=== PATIENT | female | born 1965 | race Caucasian/White ===

== ENCOUNTER → 2019-08-02 | Outpatient (CLI) | payer OTHER ==
[2019-08-02 13:51] VITALS: BP 149/80; PULSE 62; RESP 18; TEMP 98.6; BMI 20.5
--- NOTE | 2019-08-02 14:22 | P.GSHP ---
History of Present Illness H&P Date: 08/02/19 Chief Complaint: mammographic abnormality right breast Nidia is a 53 year old white female who presents for breast evaluation. She had routine bilateral stent cranial mammography in November 2018 for which additional views of the right breast were recommended. These were performed in December 2018 and these were felt to be benign BIRADS 3 and 6 month follow-up was recommended. She had her 6 month follow-up performed on 06/28/2019. This revealed increasing diffuse indeterminate calcifications in the upper outer quadrant of the right breast. Biopsy was recommended. She does not have any pain in her breast. The patient is not complaining the pain masses lumps or nodules in her breasts. She has no nipple discharge or skin changes for which she is concerned. She has not had any recent trauma or infections in the past. She has never had any breast biopsies. She drinks about three drinks of coffee/day. She also drinks pepsi. She smokes 1/2 PPD. She is not exposed to second hand smoke. She eats chocolate every day. Family History: paternal grandmother: ? where started maternal great aunt: ? type Hormonal History: menarche: 12 age at first 26, breast fed: no menopause: novasure ablation 20 years ago BCP: 2 years hormones: none Past Surgical History: 1. ovarian cyst 2. tubal Medical History: fibromyalgia Rynauds syndrome carpal tunnel DJD Social History: smoke: 1/2 PPD since 17 alcohol: social/ monthly, used to drink heavily drugs: medical marijuana - Constitutional Constitutional: Reports sweats, Denies chills, Denies fever - EENT Eyes: bilateral blurred vision, bilateral pain Ears: bilateral: decreased hearing, deny: tinnitus Ears, nose, mouth and throat: Reports headache, Denies sore throat - Breasts Breasts: bilateral: as per HPI - Cardiovascular Cardiovascular: Reports high blood pressure - Respiratory Comment: smoker Respiratory: Reports cough - Gastrointestinal Comment: CT scan next week for abd pain Gastrointestinal: Reports abdominal pain - Genitourinary (Female) Genitourinary: Denies dysuria, Denies hematuria - Menstruation Menstruation: Reports postmenopausal - Musculoskeletal Comment: arthritis left hip - Integumentary Integumentary: Denies pruritus, Denies rash - Neurological Neurological: Reports numbness, Reports weakness - Psychiatric Psychiatric: Denies anxiety, Denies depression - Endocrine Endocrine: Reports fatigue, Denies weight change - Hematologic/Lymphatic Comment: none - Allergic/Immunologic Allergic/Immunologic: Reports as per HPI Past Medical History Past Medical History: Fibromyalgia Additional Past Medical History / Comment(s): carpal tunnel, back pain, heart murmur History of Any Multi-Drug Resistant Organisms: None Reported Past Surgical History: Ablation, Tubal Ligation Additional Past Surgical History / Comment(s): ovarian cyst, drained Past Anesthesia/Blood Transfusion Reactions: No Reported Reaction Past Psychological History: Anxiety, Depression Smoking Status: Current every day smoker Past Alcohol Use History: Occasional Past Drug Use History: Marijuana Additional Drug Use History / Comment(s): medical Medications and Allergies Allergies Allergy/AdvReac Type Severity Reaction Status Date / Time No Known Allergies Allergy Verified 08/02/19 13:52 Surgical - Exam Vital Signs Temp Pulse Resp BP Pulse Ox 98.6 F 62 18 149/80 99 08/02/19 13:42 08/02/19 13:42 08/02/19 13:42 08/02/19 13:42 08/02/19 13:42 BMI 20.5 - General well developed, well nourished, no distress - Eyes normal ocular movement - ENT no hearing loss, no congestion - Neck no masses, trachea midline - Respiratory normal respiratory effort, clear to percussion, clear to auscultation - Cardiovascular Rhythm: regular Heart Sounds: normal: S1, S2 - Abdomen Abdomen: soft, non tender, no guarding, no rigid, no rebound - Integumentary normal turgor - Neurologic no disoriented, no combative - Musculoskeletal normal gait, normal posture - Psychiatric oriented to time, oriented to person, oriented to place, speech is normal, memory intact breast exam: Breasts size 30 2A/B Right breast: Multi-positional exam fibrocystic changes breast is very small and tissue was dense, no dominant masses or nodules of concern Right axilla: No adenopathy of concern Left breast: Multi-positional exam fibrocystic changes no dominant masses or nodules of concern Left axilla: No adenopathy of concern Results mammogram results reviewed Assessment and Plan Assessment: Impression: 1. Mammographic abnormality right breast 2. Fibrocystic breast changes 3. Family history of cancer 4. Nicotine dependence 5. Arthritis 6. HTN 7. Abdominal pain Plan: 1. Right breast needle localization and excisional biopsy most likely 2. I discussed the effects of nicotine/theophylline/caffeine/fibrocystic breast changes and the patient is aware that continuing to use these may exacerbate fibrocystic disease 3. Medical management of medical conditions We've discussed the possibility of stereotactic biopsy versus needle local excisional biopsy. The reason we would see with needle local excisional biopsy secondary to the fact that the patient's breast size is 30 2A/B and we may not be able to do a stereotactic biopsy. The patient understands risks and benefits and wishes to proceed. Her films will be reviewed with radiology when they're available. CC: DR. Perry Time with Patient: Greater than 30
== END ==
LOC: WWCWWP 13:17
PROVIDERS: ATTEND Surgery
DX: Z53.9 Procedure and treatment not carried out, unspecified reason (principal)

== ENCOUNTER 2019-10-02 07:15 | Day surgery (SDC) | payer OTHER ==
[2019-09-28 11:28] VITALS: BMI 20.8
--- NOTE | 2019-09-28 17:39 | P.PN ---
Subjective Progress Note Date: 09/28/19 Principal diagnosis: Abnormal mammogram right breast Nidia is a 53 year old white female who presents for breast evaluation. She had routine bilateral mammogram in November 2018 for which additional views of the right breast were recommended. These were performed in December 2018 and these were felt to be benign BIRADS 3 and 6 month follow-up was recommended. She had her 6 month follow-up performed on 06/28/2019. This revealed increasing diffuse indeterminate calcifications in the upper outer quadrant of the right breast. Biopsy was recommended. The mammogram was reviewed with Dr. Causey and he is concerned that the lesion is too far posterior for stereo biopsy. She has been recommended to undergo a needle local excisional biopsy. She does not have any pain in her breast. The patient is not complaining the pain masses lumps or nodules in her breasts. She has no nipple discharge or skin changes for which she is concerned. She has not had any recent trauma or infections in the past. She has never had any breast biopsies. She drinks about three drinks of coffee/day. She also drinks pepsi. She smokes 1/2 PPD. She is not exposed to second hand smoke. She eats chocolate every day. Family History: paternal grandmother: ? where started maternal great aunt: ? type Hormonal History: menarche: 12 age at first 26, breast fed: no menopause: novasure ablation 20 years ago BCP: 2 years hormones: none Past Surgical History: 1. ovarian cyst 2. tubal Medical History: fibromyalgia Rynauds syndrome carpal tunnel DJD Social History: smoke: 1/2 PPD since alcohol: social/ monthly, used to drink heavily drugs: medical marijuana - Constitutional Constitutional: Reports sweats, Denies chills, Denies fever - EENT Eyes: bilateral blurred vision, bilateral pain Ears: bilateral: decreased hearing, deny: tinnitus Ears, nose, mouth and throat: Reports headache, Denies sore throat - Breasts Breasts: bilateral: as per HPI - Cardiovascular Cardiovascular: Reports high blood pressure - Respiratory Comment: smoker Respiratory: Reports cough - Gastrointestinal Comment: CT scan next week for abd pain Gastrointestinal: Reports abdominal pain - Genitourinary (Female) Genitourinary: Denies dysuria, Denies hematuria - Menstruation Menstruation: Reports postmenopausal - Musculoskeletal Comment: arthritis left hip - Integumentary Integumentary: Denies pruritus, Denies rash - Neurological Neurological: Reports numbness, Reports weakness - Psychiatric Psychiatric: Denies anxiety, Denies depression - Endocrine Endocrine: Reports fatigue, Denies weight change - Hematologic/Lymphatic Comment: none - Allergic/Immunologic Allergic/Immunologic: Reports as per HPI Past Medical History Past Medical History: Fibromyalgia Additional Past Medical History / Comment(s): carpal tunnel, back pain, heart murmur History of Any Multi-Drug Resistant Organisms: None Reported Past Surgical History: Ablation, Tubal Ligation Additional Past Surgical History / Comment(s): ovarian cyst, drained Past Anesthesia/Blood Transfusion Reactions: No Reported Reaction Past Psychological History: Anxiety, Depression Smoking Status: Current every day smoker Past Alcohol Use History: Occasional Past Drug Use History: Marijuana Additional Drug Use History / Comment(s): medical Objective - Vital Signs Vital signs: Intake & Output 09/27/19 09/28/19 09/28/19 18:59 06:59 18:59 Weight 62.142 kg 20.5 - Exam BMI 20.5 - Constitutional General appearance: Present: average body habitus, no acute distress - EENT Eyes: Present: EOMI ENT: Present: hearing grossly normal - Neck Neck: Present: normal ROM - Respiratory Respiratory: bilateral: CTA - Cardiovascular Rhythm: regular Heart sounds: normal: S1, S2 - Gastrointestinal General gastrointestinal: Present: normal bowel sounds, soft - Integumentary Integumentary: Present: normal turgor - Musculoskeletal Musculoskeletal: Present: gait normal - Psychiatric Psychiatric: Present: A&O x's 3, appropriate affect, intact judgment & insight - Additional findings Additional findings: Breast exam: Breast size: 30 double a Right breast: Multi-positional exam fibrocystic changes breast is very small tissue is dense no dominant masses or nodules of concern Right axilla: No adenopathy of concern left breast: Multiple positional exam fibrocystic changes no dominant masses or nodules of concern Left axilla: No adenopathy of concern Assessment and Plan Assessment: Impression: 1. Mammographic abnormality right breast 2. Fibrocystic breast changes 3. Family history of cancer 4. Nicotine dependence 5. Arthritis 6. Hypertension 7. Abdominal pain Plan: 1. Right breast needle local excisional biopsy 2. Fibrocystic disease effects of nicotine/theophylline/caffeine discussed with patient and she is encouraged to stop use of these 3. Medical management of medical conditions Risks and benefits of surgery discussed with the patient and she wishes to proceed.
[~2019-10-02 07:15] MED LIST: DEXAMETHASONE SOD PHOSPHATE 10 MG/ML 1 ML VIAL IV ONE; HEPARIN SODIUM,PORCINE 5,000 UNIT/ML 1 ML VIAL SQ ONE; HYDROmorphone 0.5 MG/0.5 ML SYRINGE IVP PRN; LACTATED RINGERS 1,000 ML IV SCH; LIDOCAINE 1% 20 ML VIAL (10MG/ML) FOR IV START INTRADERMA PRN; MIDAZOLAM 2 MG/2 ML VIAL IV PRN; ONDANSETRON 4 MG/2 ML VIAL IVP ONE; Pre Op ABX Message 1 EACH MISC MISCELLANE ONE; SCOPOLAMINE 1.5MG/72HR PATCH TRANSDERM ONE
[2019-10-02] MEDS ORDERED: ALPRAZolam 0.5 MG TAB PO ONE (08:05)
[2019-10-02 08:47] VITALS: TEMP 97.7
[2019-10-02] MEDS ORDERED: LIDOCAINE 1% INJ 10MG/ML (20 ML MDV) SQ ONE ×3 (09:00→10:27)
[2019-10-02] MEDS ORDERED: MIDAZOLAM 2 MG/2 ML VIAL ONE (09:50)
[2019-10-02] MEDS ORDERED: DEXAMETHASONE SOD PHOS (MDV) 100 MG/10 ML VIAL ONE (09:50)
[2019-10-02] MEDS ORDERED: PROPOFOL 10 MG/ML 20 ML VIAL IV ONE (09:50)
[2019-10-02] MEDS ORDERED: fentaNYL (PF) 50 MCG/ML 2 ML AMP ONE (09:50)
[2019-10-02] MEDS ORDERED: GLYCOPYRROLATE 0.2 MG/ML 2 ML VIAL ONE (09:50)
[2019-10-02] MEDS ORDERED: KETOROLAC 30 MG/ML 1 ML VIAL ONE (09:50)
[2019-10-02] MEDS ORDERED: LACTATED RINGERS 1,000 ML IV ONE (10:45)
[2019-10-02] MEDS ORDERED: hydrALAZINE HCL 20 MG/ML 1 ML VIAL IVP ONE (10:48)
--- NOTE | 2019-10-02 10:58 | P.OP ---
Date of Procedure: 10/02/19 Preoperative Diagnosis: Mammographic abnormality right breast not able to do stereotactic biopsy secondary to small size of breast and localization of microcalcifications Postoperative Diagnosis: Same Procedure(s) Performed: Right breast needle localization excisional biopsy via crescent mastopexy incision Anesthesia: GETA Surgeon: Radha Guerrero Estimated Blood Loss (ml): 5 IV fluids (ml): 1,000 Pathology: other (breast tissue) Condition: stable Disposition: same day Indications for Procedure: Microcalcifications of concern right breast/patient did not able to have stereotactic biopsy secondary to small size of breast Operative Findings: Dense breast tissue Description of Procedure: Nidia is a 54-year-old white female who is noted to have microcalcifications of concern in the right breast. Stereotactic core biopsy was not possible secondary to the small size of the breast and the location of the microcalcifications. The patient was recommended to undergo a needle local excisional biopsy in the operating room. In the preoperative holding area ptosis anticipated asymmetry were assessed with the patient in the upright position. Her ptosis was a grade 1/2. Bilateral breast markings were placed. Close measurement a marking of the dependent position of the right nipple area complex was marked. A superior periareolar margin was placed using a marking pen. This was approxi mately 1-1/2 cm proximal to the 12 o'clock position of the area. Incision was made in the skin was de-epithelialized and this crescent fashion. A curvilinear incision was made within the de-epithelialized sewn adjacent to the plan lumpectomy. Dissection was performed in the subcutaneous anterior mammary fascia to the shaft of the needle. The shaft of the needle was brought out through the skin and the surrounding breast tissue was grasped using an Allis clamp. Circumferential dissection around the targeted lesion was performed. The specimen was removed and oriented. It was painted for o rientation. It was sent to radiology for x-ray confirm the area of concern about removed. Titanium clips were placed to nicolasa the cavity. Dissection was performed at the level of the breast along pectoralis major muscle. Approximately 15 cm of tissue was dissected to mobilize the glandular tissue to allow for repair of the defect from the partial mastectomy. The defect was closed in a [id number] fashion using 3-0 Vicryl suture. This allowed for reshaping of the breast mound to repair the defect. The skin was then closed using 4-0 Monocryl followed by a 4-0 nylon suture. The patient tolerated the procedure in stable condition. Contralateral procedure was not performed at this time. We will await results of the pathology prior to any further intervention.
--- NOTE | 2019-10-02 11:00 | P.DS ---
Providers Attending physician: Radha Guerrero Primary care physician: Lj Perry Plan - Discharge Summary Discharge Rx Participant: No New Discharge Prescriptions: No Action Cetirizine HCl 10 mg PO DAILY Lisinopril [Zestril] 10 mg PO DAILY Oxybutynin Chloride [Ditropan] 5 mg PO DAILY Albuterol Sulfate [Ventolin HFA] 1 - 2 puff INHALATION Q6H PRN PRN Reason: Bronchodilation Pregabalin [Lyrica] 150 mg PO BID HYDROcodone/APAP 5-325MG [[place] 5-325] 1 tab PO Q12HR PRN PRN Reason: Pain DULoxetine HCL [Cymbalta] 60 mg PO BID Atorvastatin [Lipitor] 40 mg PO HS traZODone HCL [Desyrel] 100 mg PO HS Omeprazole 20 mg PO DAILY Citalopram Hydrobromide [Citalopram HBr] 40 mg PO DAILY Betamethasone Dipropionate [Betamethasone Diprop Augm Gel 0.05%] 1 applic TOPICAL DAILY PRN PRN Reason: elbow bumps Multivitamin [Multivitamins Adult Gummies] 1 each PO DAILY Discharge Medication List Albuterol Sulfate [Ventolin HFA] 1 - 2 puff INHALATION Q6H PRN 08/02/19 [History ] Atorvastatin [Lipitor] 40 mg PO HS 08/02/19 [History] Betamethasone Dipropionate [Betamethasone Diprop Augm Gel 0.05%] 1 applic TOPICAL DAILY PRN 08/02/19 [History] Cetirizine HCl 10 mg PO DAILY 08/02/19 [History] Citalopram Hydrobromide [Citalopram HBr] 40 mg PO DAILY 08/02/19 [History] DULoxetine HCL [Cymbalta] 60 mg PO BID 08/02/19 [History] HYDROcodone/APAP 5-325MG [[place] 5-325] 1 tab PO Q12HR PRN 08/02/19 [History] Lisinopril [Zestril] 10 mg PO DAILY 08/02/19 [History] Omeprazole 20 mg PO DAILY 08/02/19 [History] Oxybutynin Chloride [Ditropan] 5 mg PO DAILY 08/02/19 [History] Pregabalin [Lyrica] 150 mg PO BID 08/02/19 [History] traZODone HCL [Desyrel] 100 mg PO HS 08/02/19 [History] Multivitamin [Multivitamins Adult Gummies] 1 each PO DAILY 09/28/19 [History] Follow up Appointment(s)/Referral(s): Radha Guerrero MD [STAFF PHYSICIAN] - 1 Week Activity/Diet/Wound Care/Special Instructions: Do not drive today Do not drive if taking narcotic pain medication Worse at all times May shower after 48 hours Discharge Disposition: HOME SELF-CARE
--- NOTE | 2019-10-02 11:18 | MM ---
EXAMINATION TYPE: MG pre op needle loc RT, MG surgical specimen RT DATE OF EXAM: 10/02/2019 COMPARISON: Outside mammogram June 28, 2019 CLINICAL HISTORY: Abnormal outside mammogram. TECHNIQUE: Needle localization with wire placement and surgical excision of area of concern in the right breast. FINDINGS: The procedure of needle localization with wire placement and than surgical excision was explained to the patient. Benefits, alternatives, and risks were discussed. An informed consent was then obtained. Case discussed with the ordering surgeon prior to procedure. Surgeon states there was attempt at stereotactically guided core biopsy which would be preferred for sampling which was unsuccessful. Patient denies such attempt. The shortest pathway for procedure was chosen. Shortest pathway was lateral approach. The overlying skin was prepped and draped in usual sterile fashion. Lidocaine buffered with bicarbonate was used as anesthetic into the skin and subcutaneous tissue up to the level of area of concern. A 5 cm needle was used. It was placed via a lateral approach under mammographic guidance. Subsequent 90 degrees mammogram show the needle to be in satisfactory position relative to the targeted area. At this point, wire was placed and the needle was withdrawn. The wire was fixed to patient's skin. Images were marked for surgeon. Post procedure Imaging reviewed with surgeon prior to surgery. The patient tolerated the procedure well without any immediate complication. The patient was kept in the radiology department for short stay after the procedure and then taken to surgery for surgical excision. Some of the targeted calcifications and wire are identified in specimen mammogram. The patient was kept in hospital for short stay after the procedure and then discharged home in stable condition. IMPRESSION: Successful, uncomplicated needle localization with wire placement and surgical excision of some of the targeted regional calcifications upper outer quadrant breast middle to posterior depth posterior to some benign- appearing round calcifications in the right breast, full pathology results to follow. Intermediate index of suspicion noted at time of procedure. 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 Abundant mineralizations. See note. Recommendation Surgical consult of the right breast. MTDD
[2019-10-02] MEDS ORDERED: ALBUTEROL NEBULIZED 2.5 MG/3 ML INHALATION ONE (11:25)
[2019-10-02] MEDS ORDERED: DEXAMETHASONE SOD PHOSPHATE 4 MG/ML 1 ML VIAL INTRALESIO ONE (11:26)
[2019-10-02 12:33] VITALS: RESP 20
[2019-10-02 12:37] VITALS: BP 145/89; PULSE 85
== END 2019-10-02 12:58 | disposition home or self-care (01) ==
LOC: OR 07:15
PROVIDERS: ATTEND Surgery
DX: D05.11 Intraductal carcinoma in situ of right breast (principal); F17.210 Nicotine dependence, cigarettes, uncomplicated; F41.9 Anxiety disorder, unspecified; F32.9 Major depressive disorder, single episode, unspecified; I10 Essential (primary) hypertension; E78.5 Hyperlipidemia, unspecified; K21.9 Gastro-esophageal reflux disease without esophagitis; M79.7 Fibromyalgia; I73.00 Raynaud's syndrome without gangrene; M19.90 Unspecified osteoarthritis, unspecified site; G56.00 Carpal tunnel syndrome, unspecified upper limb; M16.12 Unilateral primary osteoarthritis, left hip; R01.1 Cardiac murmur, unspecified; M54.9 Dorsalgia, unspecified; Z79.899 Other long term (current) drug therapy; Z98.890 Other specified postprocedural states; Z98.51 Tubal ligation status
CPT/HCPCS: 19125; 88342; 88307; 88341; 76098; 19281; J2250; J0360; J1644; J1100 ×3; J2405; J2001; J3010; J1885; J2704

== ENCOUNTER → 2019-10-11 | Outpatient (CLI) | payer OTHER ==
[2019-10-11 16:07] VITALS: BP 120/75; PULSE 60; RESP 18; TEMP 97.7
--- NOTE | 2019-10-11 16:23 | P.PN ---
Subjective Progress Note Date: 10/11/19 Principal diagnosis: Ductal carcinoma in situ Nidia is a 54-year-old white female status post needle local excisional biopsy of area of concern in the right breast. Pathology revealed ductal carcinoma in situ and the closest margin was 0.6 mm away from the black superior inked margin. This is a low-grade lesion grade 1. The lesion is ER/MT positive. The patient has no complaints related to the procedure. Objective - Vital Signs Vital signs: Vital Signs Temp 97.7 F 10/11/19 16:03 Pulse 60 10/11/19 16:03 Resp 18 10/11/19 16:03 BP 120/75 10/11/19 16:03 Pulse Ox 97 10/11/19 16:03 Intake & Output 10/10/19 10/11/19 10/11/19 18:59 06:59 18:59 Weight 62.596 kg - Exam BMI 21 - Constitutional General appearance: Present: average body habitus - EENT Eyes: Present: EOMI ENT: Present: hearing grossly normal - Neck Neck: Present: normal ROM - Respiratory Details: wheezing bilateral at the bases - Cardiovascular Rhythm: regular Heart sounds: normal: S1, S2 - Integumentary Integumentary Comment(s): Incision periareolar region on the right clean and dry No evidence of infection Integumentary: Present: normal turgor - Musculoskeletal Musculoskeletal: Present: gait normal - Psychiatric Psychiatric: Present: A&O x's 3, appropriate affect Assessment and Plan Assessment: Impression: 1. New diagnosis right breast ductal carcinoma in situ 2. Superior Margin of DCIS is close /0.6 mm Plan: 1. discuss case at tumor board 2. review with radiology 3. follow up 1 week Time with Patient: Less than 30
== END | disposition home or self-care (01) ==
LOC: WWCWWP 15:36
PROVIDERS: ATTEND Surgery
DX: Z53.9 Procedure and treatment not carried out, unspecified reason (principal)

== ENCOUNTER → 2019-11-27 | Outpatient (CLI) | payer OTHER | END | disposition home or self-care (01) | LOC: RADMAMWWP 13:06 | PROVIDERS: ATTEND Surgery | DX: Z53.9 Procedure and treatment not carried out, unspecified reason (principal) ==

== ENCOUNTER → 2019-12-20 | Outpatient (CLI) | payer OTHER ==
--- NOTE | 2019-12-23 15:52 | BMR ---
EXAMINATION TYPE: MR breast BILAT wo/w con DATE OF EXAM: 12/20/2019 2:08 PM COMPARISON: Recent outside mammograms HISTORY: Rt breast cancer; Biopsy done at [facility], outside mamms on pacs; Gadavist 6ml. CONTRAST: The patient was injected with 6.5 mL intravenous Gadavist gadolinium contrast. TECHNIQUE: Precontrast T1 and T2 coronal, axial and high-resolution STIR sagittal images were acquire d. Postcontrast dynamic images were acquired.This study was processed using a [employer] computer-aid ed detection system to optimize radiologist interpretation by generating multiplanar and three-dimens ional reconstructions, creating subtraction images from the dynamic contrast data and computing tumor volumes and dimensions. FINDINGS: Right breast: There is scattered fibroglandular tissue seen . There are changes of recent right-sided surgical excision with distortion and blood byproducts present. Hemosiderin deposition noted. Metall ic susceptibility artifact noted. I do not see evidence for pathologic enhancement to suggest residua l DCIS however see below disclaimer. Skin thickening noted. No evidence for nipple retraction. No axi llary adenopathy present. Left breast: There is scattered fibroglandular tissue seen with mild adenosis present. There is no e vidence for an enhancing mass or pathologic enhancement. No skin thickening or nipple retraction is seen. No axillary adenopathy present. IMPRESSION: 1. Right breast: BI-RADS 6 pathology proven breast carcinoma 2. Left breast: BI-RADS 2 benign RECOMMENDATION: Surgical consultation and six-month follow-up MR is approximately 98% specific in excluding invasive or infiltrative malignant neoplasm when hypova scularity or absence of enhancement is determined. Rare hypovascular neoplasms include mucinous carci nomas and tubular carcinomas. MR may not detect low-grade of DCIS and unusual instances of hypovascu lar lobular carcinomas have been reported. Mr breast findings should not be used to mitigate against biopsy in cases where there is substantive mammographic evidence of malignancy. Mri is not a suitab le substitute for yearly screening mammogram unless the patient has extremely dense breasts and the m ammography study is limited or un-interpretable at which point the decision to substitute MR is at th e discretion of the patient and the patients clinician.
== END | disposition home or self-care (01) ==
LOC: RADMRIMAIN 12:55
PROVIDERS: ATTEND Surgery
DX: C50.911 Malignant neoplasm of unspecified site of right female breast (principal)
CPT/HCPCS: C8937; C8908; A9585; 77049

== ENCOUNTER → 2020-01-01 | Outpatient (CLI) | payer OTHER ==
--- NOTE | 2020-01-01 15:37 | P.PN ---
Progress Note - Text Progress Note Date: 01/01/20 Nidia underwent a right breast needle local excisional biopsy on . Pathology revealed low-grade carcinoma in situ measuring 1.5 mm in dimension. The superior margin was 0.6 mm away from the tumor. The patient also had additional calcifications in the mammogram and the question was whether she should have further excision or could be followed conservatively. The lesion is ER/MI positive. She was going to have a repeat mammogram of the right breast however there was concern that it was too close to the time of the biopsy and an MRI was suggested instead. Nidia was called with the results of her MRI. Her MRI did not show any specific residual DCIS or invasive cancer in either breast. However disclaimers states that my main not detect low-grade DCIS in unusual instances of hypovascular lobular carcinoma have been reported. MR should not be used to mitigate biopsy in cases where there is substantial blanching of mammographic evidence of malignancy. Patient is due for bilateral mammogram at this time. She is going to have bilateral mammogram after which her case will be again presented at tumor board. Recommendations will then be made. Impression/plan: 1. Bilateral MRI showing no specific evidence of invasive or pre-cancer in the breast 2. Needle local excisional biopsy showing an area of 1.5 mm DCIS with margin superiorly superior 0.6 mm 3. Residual microcalcifications in the left breast 4. Patient is case to be presented at tumor board treatment recommendation could be repeat excision versus treatment with antiestrogen therapy and close surveillance Patient is aware and further recommendation will be made after her bilateral mammogram and presentation at tumor board. CC: Dr. Perry time 20 minutes
--- NOTE | 2020-01-02 12:30 | P.PN ---
Progress Note - Text Progress Note Date: 01/02/20 Nidia had bilateral mammogram preformed today. Her radiographs were reviewed with Dr. Robles. She has a small number of residual microcalcifications in the right breast near the area of the prior biopsy. She has additionally new-onset of calcifications in the left breast. As recommended by radiology that she have sampling of the calcifications in the left breast. Secondary to the size of her breast is not felt that she can undergo stereo biopsy. This therefore been recommended that she have needle local excisional biopsy. Additionally the lesion in the left breast has residual microcalcifications near the site of the biopsy. The patient had a small area of DCIS 1.5 mm in dim ension removed at her last needle local excisional biopsy on 120 120. The superior margin however was only 0.6 mm away from the tumor. With this information and the fact that the patient is recommended to undergo a left breast needle local excisional biopsy she would like to have reexcision of the area on the right breast. This and benefits of the procedure were discussed with the patient. Risks include but are not limited to bleeding, infection, reaction to the anesthetic. Additionally there is possibility that the needle could move in the area of concern would not be resected. She understands this and wishes to proceed. Impression/plan: 1. Bilateral needle localization and excisional biopsy of both breast 2. Patient will be scheduled when it is possible secondary to the pandemic and limited OR capability. CC: Dr. Lj Perry
== END | disposition home or self-care (01) ==
LOC: WWCWWP 15:27
PROVIDERS: ATTEND Surgery
DX: Z53.9 Procedure and treatment not carried out, unspecified reason (principal)

== ENCOUNTER → 2020-01-02 | Outpatient (CLI) | payer OTHER ==
--- NOTE | 2020-01-09 09:19 | MM ---
Reason for exam: additional evaluation requested from prior study. History: Patient has history of breast cancer at age 54. Malignant MG pre op needle loc RT of the right breast, October 02, 2019. Lumpectomy of the right breast. Physical Findings: Nurse did not find any significant physical abnormalities on exam. MG Diagnostic Mammo w CAD ROM Bilateral CC, MLO, and XCCL view(s) were taken. Prior study comparison: December 20, 2019, bilateral MR breast bilat wo/w con. The breast tissue is heterogeneously dense. This may lower the sensitivity of mammography. Left amorphous grouped calcifications anterior upper outer quadrant, needle localization recommended. Right post surgical changes. A few residual poorly defined calcification 11 o'clock position. See magnification view. Repeat needle localization. These results were verbally communicated with the patient and result sheet given to the patient on 01/02/20. ASSESSMENT: Suspicious, BI-RAD 4 RECOMMENDATION: Surgical consultation and localization and excision of both breasts. Repeat on the right for residual calcifications. Dr. Guerrero discussed case at the workstation.
== END | disposition home or self-care (01) ==
LOC: RADMAMWWP 10:48
PROVIDERS: ATTEND Surgery
DX: R92.8 Other abnormal and inconclusive findings on diagnostic imaging of breast (principal)
CPT/HCPCS: 77066

== ENCOUNTER → 2020-01-18 | Outpatient (CLI) | payer OTHER ==
--- NOTE | 2020-01-18 11:18 | P.PN ---
Phuong Jacob is a 54 year old white female who presented for breast evaluation initially in July 2019. She had undergone routine bilateral mammography in November 2018 for which additional views of the right breast were recommended. These were performed in December 2018 and these were felt to be benign BIRADS 3 and 6 month follow-up was recommended. She had her 6 month follow-up performed on 06/28/2019. This revealed increasing diffuse indeterminate calcifications in the upper outer quadrant of the right breast. Biopsy was recommended. She does not have any pain in her breast. Her breast were too small to do a stereo biopsy and she underwent a right breast needle localization and a lumpectomy in September 2019. 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 Her case was presented at tumor Board and there was concern that there were residual microcalcifications which may represent additional ductal carcinoma in situ. She had bilateral breast MRIs which were done in December 2019. In the right breast area of pathology proven breast DCIS was identified, no evidence for pathologic enhancement to suggest residual DCIS. In the left breast no specific lesions of concern were identified. The patient then had a bilateral mammogram performed on. This revealed some residual poorly defined right breast calcifications. Additionally in the left breast and amorphous prescription calcification in the anterior upper outer quadrant was noted. Again secondary to the small size of her breast is not felt that this can be sampled via a stereo biopsy. Recommendation as per radiology was for surgical consultation w ith localization and excision of the calcifications in both breasts. The patient is not complaining of any masses lumps or nodules in her breasts. She does have some intermittent left breast tenderness. She states that the tenderness occurs daily. She is uncertain as to what causes it. It is located in the lateral aspect of the breast. She has no nipple discharge or skin changes for which she is concerned. She has not had any recent trauma or infections in the past. She has never had any breast biopsies. She drinks about three cups of coffee/day. She also drinks pepsi, a 2 L every 3 days. She smokes 1/2 PPD. She is not exposed to second hand smoke. She eats chocolate several times a week. Family History: paternal grandmother: ? where started maternal great aunt: ? type Hormonal History: menarche: 12 age at first 26, breast fed: no menopause: novasure ablation 20 years ago BCP: 2 years hormones: none Past Surgical History: 1. ovarian cyst 2. tubal 3. Right breast biopsy Medical History: fibromyalgia Rynauds syndrome carpal tunnel DJD Social History: smoke: 1/2 PPD since 17 alcohol: social/ monthly, used to drink heavily drugs: medical marijuana - Constitutional Constitutional: Reports sweats, Denies chills, Denies fever - EENT Eyes: bilateral blurred vision, bilateral pain Ears: bilateral: decreased hearing, deny: tinnitus Ears, nose, mouth and throat: Reports headache, Denies sore throat - Breasts Breasts: bilateral: as per HPI - Cardiovascular Cardiovascular: Reports high blood pressure - Respiratory Comment: smoker Respiratory: Reports cough - Gastrointestinal Comment: CT scan was scheduled for abdominal pain which was rescheduled secondary to the harman virus Gastrointestinal: Reports abdominal pain - Genitourinary (Female) Genitourinary: Denies dysuria, Denies hematuria - Menstruation Menstruation: Reports postmenopausal - Musculoskeletal Comment: arthritis left hip - Integumentary Integumentary: Denies pruritus, Denies rash - Neurological Neurological: Reports numbness, Reports weakness - Psychiatric Psychiatric: Denies anxiety, Denies depression - Endocrine Endocrine: Reports fatigue, Denies weight change - Hematologic/Lymphatic Comment: none - Allergic/Immunologic Allergic/Immunologic: Reports as per HPI Past Medical History Past Medical History: Fibromyalgia Additional Past Medical History / Comment(s): carpal tunnel, back pain, heart murmur History of Any Multi-Drug Resistant Organisms: None Reported Past Surgical History: Ablation, Tubal Ligation Additional Past Surgical History / Comment(s): ovarian cyst, drained Past Anesthesia/Blood Transfusion Reactions: No Reported Reaction Past Psychological History: Anxiety, Depression Smoking Status: Current every day smoker Past Alcohol Use History: Occasional Past Drug Use History: Marijuana Additional Drug Use History / Comment(s): medical Medications and Allergies Allergies Allergy/AdvReac Type Severity Reaction Status Date / Time No Known Allergies Allergy Verified 08/02/19 13:52 Objective - Vital Signs Vital signs: Vital Signs Temp 98.1 F 01/18/20 10:35 Pulse 55 L 01/18/20 10:35 Resp 18 01/18/20 10:35 BP 103/69 01/18/20 10:35 Pulse Ox 94 L 01/18/20 10:35 Intake & Output 01/17/20 01/18/20 01/18/20 18:59 06:59 18:59 Weight 62.596 kg - Constitutional General appearance: Present: average body habitus - EENT Eyes: Present: EOMI ENT: Present: hearing grossly normal - Neck Neck: Present: normal ROM - Respiratory Respiratory: bilateral: CTA - Cardiovascular Rhythm: regular Heart sounds: normal: S1, S2 - Gastrointestinal General gastrointestinal: Present: normal bowel sounds, soft - Integumentary Integumentary: Present: normal turgor - Musculoskeletal Musculoskeletal: Present: gait normal - Psychiatric Psychiatric: Present: A&O x's 3, appropriate affect, intact judgment & insight - Additional findings Additional findings: breast exam: BRA 34B inspection: Ptosis right breast grade 1, left breast grade 2, well-healed scar right breast from prior biopsy Breast examination: Right breast: Multi-positional exam well-healed scar from prior biopsy no dominant masses or nodules of concern Right axilla: No adenopathy of concern Left breast: Positional exam no dominant masses or nodules of concern Left axilla: No adenopathy of concern Assessment and Plan Assessment: Impression: 1. Microcalcifications left breast of concern 2. Prior right breast needle local excisional biopsy with a 1.5 mm focus of DCIS 0.6 mm from superior margin, additional radiographic studies show residual microcalcifications therefore patient is going to have reexcision of this area via needle localization 3. Fibromyalgia 4. Nicotine dependence Plan: 1. Needle localization and excisional biopsy of bilateral breast with bilateral possible Onco-plastic tissue transfer, possible left breast mastopexy Risks and benefits of procedure discussed with the patient including bleeding and infection reaction to the anesthetic possible positive margins or inability to remove the area of concern which could necessitate further tissue removal. We have also discussed the risk of cold at 19 exposure. The patient understands and wishes to proceed with surgical intervention. The patient's mother was here further discussion as well. The lesion is ER/ID positive and she will have postprocedure radiation and hormonal therapy. The patient understands that if she wished she could forego surgical intervention at this time and just be treated with the anti-hormonal agent however she wishes to proceed with the surgery. Cc: [place] encounter 40 minutes greater than 50% of time in planning and counselling Time with Patient: Greater than 30
[2020-01-18 11:36] VITALS: BP 103/69; PULSE 55; RESP 18; TEMP 98.1
== END | disposition home or self-care (01) ==
LOC: WWCWWP 09:55
PROVIDERS: ATTEND Surgery
DX: Z53.9 Procedure and treatment not carried out, unspecified reason (principal)

== ENCOUNTER → 2020-01-25 | Outpatient (CLI) | payer OTHER | END | disposition home or self-care (01) | LOC: LABWHC1 11:16 | PROVIDERS: ATTEND Surgery | DX: U07.1 COVID-19 (principal) | CPT/HCPCS: 87635 ==

== ENCOUNTER 2020-01-29 07:25 | Day surgery (SDC) | payer OTHER ==
[2020-01-28 10:33] VITALS: BMI 20.9
[~2020-01-29 07:25] MED LIST changes: +LIDOCAINE 1% (10MG/ML) FOR IV START INTRADERMA PRN; -LIDOCAINE 1% 20 ML VIAL (10MG/ML) FOR IV START INTRADERMA PRN; -SCOPOLAMINE 1.5MG/72HR PATCH TRANSDERM ONE
[2020-01-29] MEDS ORDERED: ALPRAZolam 0.5 MG TAB PO ONE (07:45)
[2020-01-29] MEDS ORDERED: LIDOCAINE 1% INJ 10MG/ML (20 ML MDV) SQ ONE ×2 (08:51→09:51)
[2020-01-29] MEDS ORDERED: MIDAZOLAM 2 MG/2 ML VIAL ONE (09:51)
[2020-01-29] MEDS ORDERED: PHENYLEPHRINE-0.9% NACL SYG 1 MG/10 ML SYRINGE ONE (09:51)
[2020-01-29] MEDS ORDERED: PROPOFOL 10 MG/ML 20 ML VIAL IV ONE (09:51)
[2020-01-29] MEDS ORDERED: KETOROLAC 30 MG/ML 1 ML VIAL ONE (09:51)
[2020-01-29] MEDS ORDERED: SUCCINYLCHOLINE CHLORIDE 100 MG/5 ML SYR IV ONE (09:51)
[2020-01-29] MEDS ORDERED: DEXAMETHASONE SOD PHOS (MDV) 100 MG/10 ML VIAL ONE (09:51)
[2020-01-29] MEDS ORDERED: fentaNYL (PF) 50 MCG/ML 2 ML AMP ONE (09:51)
--- NOTE | 2020-01-29 11:37 | P.OP ---
Date of Procedure: 01/29/20 Preoperative Diagnosis: Microcalcifications of concern in left breast, right breast biopsy DCIS with close superior margin and residual microcalcifications Postoperative Diagnosis: Same Procedure(s) Performed: Left breast mastopexy with excisional lumpectomy localization and onco-plastic tissue transfer, right breast lumpectomy after needle localization Anesthesia: MARK Surgeon: Radha Guerrero Estimated Blood Loss (ml): 8 IV fluids (ml): 1,000 Pathology: other (Bilateral breast tissue) Condition: stable Disposition: same day Indications for Procedure: Left breast microcalcifications of concern, right breast prior biopsy DCIS with residual microcalcifications in breast and close superior margin Operative Findings: Bilateral dense breast tissue Description of Procedure: Nidia is a 54-year-old white female who is status post right breast needle localized excisional lumpectomy which revealed DCIS. The DCIS was closest of the superior margin. Of concern was the fact that post procedure there were residual microcalcifications in the right breast. After presentation at tumor board it was decided to do a needle localization of the area of resection and wider reexcision. The left breast on recent mammogram was noted to have microcalcifications of concern and needle local excisional lumpectomy was recommended. The patient had a mastopexy on the right side at the last procedure and will have a mastopexy on the left side at this procedure. Following needle localization of the areas of concern in both the right and left breast the patient was taken to the operative suite. The left breast was approached initially. She was marked in the preoperative area using a purple marking pen. The crescent nicolasa was placed at the superior aspect of the areola with the apex being approximately 1 1/2 cm higher than the aerola. The patient was brought to the operating room and the breasts were prepped and draped in a sterile fashion following induction of anesthesia. The left breast area of crescent was de-epithelialized. The parenchyma was entered at the superior aspect of the crescent. This was dissected down to the needle and the surrounding tissue was excised. The tissue was then mobilized medially and laterally approximately 20 cm. This was then brought together from superior to inferior using a 3-0 Vicryl suture. Prior to this the wound was evaluated for hemostasis and once this was assured titanium clips were placed to nicolasa the area. The specimen was painted for orientation and sent for radiographic evaluation. Confirmation the area of concern about removed was obtained. Following this the subcutaneous tissues were closed using a Strafford-Tim suture. This was followed by a 4-0 Monocryl in the nylon skin suture. The elevation secondary to the mastopexy matched the elevation of the nipple on the right side, the elevation was about 1 1/2 cm . The patient tolerated the procedure in stable condition. Following the left side the right side was approached. On the right side the prior incision which was circumareolar was utilized. Dissection was carried down to the needle. Surrounding tissue was excised. The tissue at this point was mobilized superiorly and inferiorly was brought together in a medial to lateral fashion. Prior to this was examined for hemostasis after assured that hemostasis was attained Titanium clips were placed. We were resecting the old biopsy cavity as well as some additional tissue. The tissue was painted for orientation. Tissue was sent to radiology for confirmation the area of concern about removed. Following this the skin was closed using a 4-0 Strafford-Tim subcutaneous suture followed by subcuticular Monocryl and nylon skin suture. At the termination of the procedure all instrument and sponge counts were correct. The patient tolerated the procedure in stable condition. The patient will follow-up Dr. Stewart next week.
--- NOTE | 2020-01-29 11:44 | P.DS ---
Providers Attending physician: Radha Guerrero Primary care physician: Stated None Plan - Discharge Summary Discharge Rx Participant: Yes New Discharge Prescriptions: No Action Lisinopril [Zestril] 10 mg PO DAILY Oxybutynin Chloride [Ditropan] 5 mg PO DAILY Albuterol Sulfate [Ventolin HFA] 1 - 2 puff INHALATION Q6H PRN PRN Reason: Bronchodilation HYDROcodone/APAP 5-325MG [[place] 5-325] 1 tab PO Q12HR PRN PRN Reason: Pain DULoxetine HCL [Cymbalta] 60 mg PO BID Atorvastatin [Lipitor] 40 mg PO HS traZODone HCL [Desyrel] 100 mg PO HS Omeprazole 20 mg PO DAILY Citalopram Hydrobromide [Citalopram HBr] 40 mg PO DAILY Betamethasone Dipropionate [Betamethasone Diprop Augm Gel 0.05%] 1 applic TOPICAL DAILY PRN PRN Reason: elbow bumps Multivitamin [Multivitamins Adult Gummies] 1 each PO DAILY Pregabalin [Lyrica] 200 mg PO BID Discharge Medication List Albuterol Sulfate [Ventolin HFA] 1 - 2 puff INHALATION Q6H PRN 08/02/19 [History] Atorvastatin [Lipitor] 40 mg PO HS 08/02/19 [History] Betamethasone Dipropionate [Betamethasone Diprop Augm Gel 0.05%] 1 applic TOPICAL DAILY PRN 08/02/19 [History] Citalopram Hydrobromide [Citalopram HBr] 40 mg PO DAILY 08/02/19 [History] DULoxetine HCL [Cymbalta] 60 mg PO BID 08/02/19 [History] HYDROcodone/APAP 5-325MG [[place] 5-325] 1 tab PO Q12HR PRN 08/02/19 [History] Lisinopril [Zestril] 10 mg PO DAILY 08/02/19 [History] Omeprazole 20 mg PO DAILY 08/02/19 [History] Oxybutynin Chloride [Ditropan] 5 mg PO DAILY 08/02/19 [History] traZODone HCL [Desyrel] 100 mg PO HS 08/02/19 [History] Multivitamin [Multivitamins Adult Gummies] 1 each PO DAILY 09/28/19 [History] Pregabalin [Lyrica] 200 mg PO BID 01/28/20 [History] Follow up Appointment(s)/Referral(s): Radha Guerrero MD [STAFF PHYSICIAN] - 1 Week Activity/Diet/Wound Care/Special Instructions: do not drive today may shower after 48 hours wear bra at all times Discharge Disposition: HOME SELF-CARE
[2020-01-29] MEDS ORDERED: LACTATED RINGERS 1,000 ML IV ONE (11:47)
[2020-01-29 12:10] VITALS: TEMP 97.1
[2020-01-29 12:29] VITALS: RESP 16
--- NOTE | 2020-01-29 13:28 | MM ---
EXAMINATION TYPE: MG pre op needle loc LT, MG pre op needle loc RT, MG surgical specimen RT, MG surgical specimen LT DATE OF EXAM: 01/29/2020 COMPARISON: Bilateral breast MRI December 20, 2019. Bilateral diagnostic breast mammogram January 02, 2020 and older mammograms CLINICAL HISTORY: History of right-sided DCIS on biopsy with bilateral suspicious group of microcalcifications. TECHNIQUE: Needle localization with wire placement and surgical excision of area of concern in the bilateral breasts. FINDINGS: The procedure of needle localization with wire placement and than surgical excision was explained to the patient. Benefits, alternatives, and risks were discussed. An informed consent was then obtained. The shortest pathway for procedure was chosen. Shortest pathway was lateral approach. The overlying skin was prepped and draped in usual sterile fashion. Lidocaine is used as anesthetic into the skin and subcutaneous tissue up to the level of area of concern. A 5 cm needle was used. It was placed via a lateral approach under mammographic guidance. Subsequent 90 degrees mammogram show the needle to be in satisfactory position relative to the targeted area. At this point, wire was placed and the needle was withdrawn. The wire was fixed to patient's skin. Similar procedure performed for the left breast after the right breast. Images were marked for surgeon. The patient tolerated the procedure well without any immediate complication. The patient was kept in the radiology department for short stay after the procedure and then taken to surgery for surgical excision. Targeted microcalcifications and wire are identified in specimen mammogram. Right breast also included excision of 2 nearby surgical clips and some larger benign round calcifications. The patient was kept in hospital for short stay after the procedure and then discharged home in stable condition. IMPRESSION: Successful, uncomplicated needle localization with wire placement and surgical excision of targeted microcalcifications in the bilateral breasts, full pathology results to follow. Low to intermediate index of suspicion noted at time of procedure. Pathology Results: High Risk A. LEFT BREAST, NEEDLE LOCALIZATION EXCISION: Fibrocystic changes including sclerosing adenosis with calcifications, fibrosis, cysts and apocrine metaplasia. B. RIGHT BREAST, NEEDLE LOCALIZATION EXCISION: Focal atypical lobular hyperplasia (ALH) in a background of proliferative fibrocystic changes including florid sclerosing adenosis with calcifications, fibrosis and cysts. Previous biopsy site changes. See note. Recommendation Follow up mammogram of both breasts in 6 months. YVETTED
[2020-01-29 14:00] VITALS: BP 142/78; PULSE 65
== END 2020-01-29 14:15 | disposition home or self-care (01) ==
LOC: OR 07:25
PROVIDERS: ATTEND Surgery
DX: D05.11 Intraductal carcinoma in situ of right breast (principal); N60.22 Fibroadenosis of left breast; N60.21 Fibroadenosis of right breast; N60.32 Fibrosclerosis of left breast; N60.31 Fibrosclerosis of right breast; N60.82 Other benign mammary dysplasias of left breast; I10 Essential (primary) hypertension; J44.9 Chronic obstructive pulmonary disease, unspecified; F17.210 Nicotine dependence, cigarettes, uncomplicated; F31.9 Bipolar disorder, unspecified; G89.29 Other chronic pain; M79.7 Fibromyalgia; F41.9 Anxiety disorder, unspecified; Z79.899 Other long term (current) drug therapy; Z98.890 Other specified postprocedural states; Z98.51 Tubal ligation status
CPT/HCPCS: 19301; 88342; 88307; 88341; 76098 ×2; 19281; J2250; J1644; J1100 ×2; J2405; J2001; J3010; J1885; J2370; J0330; J2704

== ENCOUNTER → 2020-02-08 | Outpatient (CLI) | payer OTHER ==
[2020-02-08 15:54] VITALS: BP 137/80; PULSE 54; RESP 18; TEMP 98.3
--- NOTE | 2020-02-08 16:14 | P.PN ---
Subjective Progress Note Date: 02/08/20 Principal diagnosis: Nidia is a 54-year-old white female status post bilateral breast biopsies on . Postprocedure she has done well without complaints. The right breast has a known diagnosis of ductal carcinoma in situ, repeat excision revealed focal atypical lobular hyperplasia in a background of proliferative fibrocystic changes with calcifications. The left side revealed fibrocystic changes including sclerosing adenosis with calcifications. The patient was given a prescription for tamoxifen and is going to [facility] and a running with Dr. Mason. She is also going to see the radiation oncologist to consider radiation therapy on the right breast. Objective - Vital Signs Vital signs: Vital Signs Temp 98.3 F 02/08/20 15:49 Pulse 54 L 02/08/20 15:49 Resp 18 02/08/20 15:49 BP 137/80 02/08/20 15:49 Pulse Ox 100 02/08/20 15:49 Intake & Output 02/07/20 02/08/20 02/08/20 18:59 06:59 18:59 Weight 63.957 kg - Constitutional General appearance: Present: average body habitus - EENT Eyes: Present: EOMI ENT: Present: hearing grossly normal - Respiratory Respiratory: bilateral: CTA - Cardiovascular Rhythm: regular Heart sounds: normal: S1, S2 - Musculoskeletal Musculoskeletal: Present: gait normal - Psychiatric Psychiatric: Present: A&O x's 3 - Additional findings Additional findings: incision clean and dry bilateral, no evidence of infection or hematoma Assessment and Plan Assessment: Impression: 1. Right breast DCIS 2. Fibrocystic breast changes Plan: 1. Tamoxifen as per medical oncology 2. Follow-up radiation oncology 2. Follow up here in 3 months time for examination and repeat bilateral mammogram in 6 months time CC: DR. Wyatt Katz ([facility])
== END | disposition home or self-care (01) ==
LOC: WWCWWP 15:29
PROVIDERS: ATTEND Surgery
DX: Z53.9 Procedure and treatment not carried out, unspecified reason (principal)

== ENCOUNTER → 2020-09-26 | Outpatient (CLI) | payer OTHER ==
--- NOTE | 2020-09-26 13:09 | P.PN ---
Subjective Progress Note Date: 09/26/20 Principal diagnosis: DCIS right breast Nidia is a 55 year old white female who underwent a right lumpectomy for low-grade DCIS on . Pathology at that time revealed low-grade DCIS measuring 1.5 cm with a close margin at 0.6 mm. This was ER/AK positive. On she had reexcision of the margins which came back negative. The patient is presently on tamoxifen. She did not have any radiation therapy. She does not feel any lumps masses or nodules for which she is concern in either breast. She is not complaining of any nipple discharge or skin changes. She has not had a recent mammogram. Family History: paternal grandmother: ? where started maternal great aunt: ? type Hormonal History: menarche: 12 age at first 26, breast fed: no menopause: novasure ablation 20 years ago BCP: 2 years hormones: none Past Surgical History: 1. ovarian cyst 2. tubal 3. Right breast biopsy 4. right breast lumpectomy Medical History: fibromyalgia Rynauds syndrome carpal tunnel DJD Social History: smoke: 1/2 PPD since 17 alcohol: social/ monthly, used to drink heavily drugs: medical marijuana - Constitutional Constitutional: Reports sweats, Denies chills, Denies fever - EENT Eyes: bilateral blurred vision, bilateral pain Ears: bilateral: decreased hearing, deny: tinnitus Ears, nose, mouth and throat: Reports headache, Denies sore throat - Breasts Breasts: bilateral: as per HPI - Cardiovascular Cardiovascular: Reports high blood pressure - Respiratory Comment: smoker Respiratory: Reports cough - Gastrointestinal Comment: CT scan was scheduled for abdominal pain which was rescheduled secondary to the harman virus Gastrointestinal: Reports abdominal pain - Genitourinary (Female) Genitourinary: Denies dysuria, Denies hematuria - Menstruation Menstruation: Reports postmenopausal - Musculoskeletal Comment: arthritis left hip - Integumentary Integumentary: Denies pruritus, Denies rash - Neurological Neurological: Reports numbness, Reports weakness - Psychiatric Psychiatric: Denies anxiety, Denies depression - Endocrine Endocrine: Reports fatigue, Denies weight change - Hematologic/Lymphatic Comment: none - Allergic/Immunologic Allergic/Immunologic: Reports as per HPI Objective - Exam BMI 21.4 - Constitutional General appearance: Present: average body habitus - EENT Eyes: Present: EOMI ENT: Present: hearing grossly normal - Neck Neck: Present: normal ROM - Respiratory Respiratory: bilateral: CTA - Cardiovascular Rhythm: regular Heart sounds: normal: S1, S2 - Gastrointestinal General gastrointestinal: Present: soft - Integumentary Integumentary: Present: normal turgor - Musculoskeletal Musculoskeletal: Present: gait normal - Psychiatric Psychiatric: Present: A&O x's 3, appropriate affect - Additional findings Additional findings: Breast Exam: Bra: 32B inspection: Well-healed scars bilaterally from surgery, she had a left breast biopsy performed Palpation: Right breast: Multi-positional exam no dominant masses or nodules of concern Right axilla: No adenopathy of concern Left breast: Positional exam no dominant masses or nodules of concern Left axilla: No adenopathy of concern Assessment and Plan Assessment: Impression: 1. right breast DCIS, no evidence of recurrence 2. patient on tamoxifen 3. due for bilateral mammogram Plan: 1. bilateral mammogram 2. continue tamoxifen and follow up with medical oncology 3. follow up after mammogram CC: Dr. Katz encounter 15 minutes, > 50% of time in planning and counselling
[2020-09-26 15:21] VITALS: BP 117/70; PULSE 62; RESP 18; TEMP 98
== END | disposition home or self-care (01) ==
LOC: WWCWWP 12:41
PROVIDERS: ATTEND Surgery
DX: Z53.9 Procedure and treatment not carried out, unspecified reason (principal)

== ENCOUNTER → 2020-11-06 | Outpatient (CLI) | payer OTHER ==
--- NOTE | 2020-11-07 11:35 | MM ---
Reason for exam: follow-up at short interval from prior study. Last mammogram was performed 10 months ago. History: Patient has history of breast cancer at age 54 and has history of high-risk lesion on a previous biopsy at age 54. High risk MG pre op needle loc LT of the left breast, January 29, 2020. High risk MG pre op needle loc RT of the right breast, January 29, 2020. Malignant MG pre op needle loc RT of the right breast, October 02, 2019. Lumpectomy of the right breast. Taking antineoplastic for 1 year. Physical Findings: Nurse did not find any significant physical abnormalities on exam. MG 3D Diag Mammo W/Cad ROM Bilateral CC and MLO view(s) were taken. Prior study comparison: January 02, 2020, bilateral MG diagnostic mammo w CAD ROM. The breast tissue is heterogeneously dense. This may lower the sensitivity of mammography. Post operative changes bilaterally. No significant new findings when compared with previous films. These results were verbally communicated with the patient and result sheet given to the patient on 11/06/20. ASSESSMENT: Benign, BI-RAD 2 RECOMMENDATION: Follow-up diagnostic mammogram of both breasts in 1 year.
== END | disposition home or self-care (01) ==
LOC: RADMAMWWP 15:00
PROVIDERS: ATTEND Surgery
DX: R92.8 Other abnormal and inconclusive findings on diagnostic imaging of breast (principal)
CPT/HCPCS: 77066; G0279; 77062

== ENCOUNTER → 2020-12-23 | Outpatient (CLI) | payer OTHER ==
[2020-12-23 09:54] VITALS: BP 117/76; PULSE 55; RESP 18; TEMP 98.2
--- NOTE | 2020-12-23 10:54 | P.HPOB ---
History of Present Illness H&P Date: 12/23/20 Chief Complaint: The patient is here for her routine gynecologic exam. This is a 55-year-old with an LMP of 2000. The patient is here to establish with this office. She thinks it is been about 1 year since her last pelvic exam. She has been amenorrheic since her endometrial ablation done around 2000. She does have occasional night sweats. She is without gynecologic complaints and denies any vaginal bleeding. Review of Systems The patient states she has gained 20 pounds over the last year. She denies respiratory, cardiac, or G.I. problems. Past Medical History Past Medical History: Asthma, Cancer, COPD, Fibromyalgia, Hyperlipidemia, Hypertension, Musculoskeletal Disorder Additional Past Medical History / Comment(s): Right breast cancer 2019 status post lumpectomy. Peptic ulcer disease, [place] carpal tunnel, fibromyalgia inserts past, heart murmur, insomnia, varicose veins. 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 History of Any Multi-Drug Resistant Organisms: None Reported Past Surgical History: Breast Surgery, Tubal Ligation, Uterine Ablation Additional Past Surgical History / Comment(s): ovarian cyst drained. Novasure ablation 2000. Colonoscopy 2016(next after 10yr) Right breast lumpectomy 2019 Past Anesthesia/Blood Transfusion Reactions: No Reported Reaction, Family History of Problems w/ Anesthesia Additional Past Anesthesia/Blood Transfusion Reaction / Comment(s): mother had cardiac arrest & rash to sodium pentothol. Past Psychological History: Anxiety, Depression Smoking Status: Current every day smoker (Half pack per day) Past Alcohol Use History: Occasional (6 per month) Additional Past Alcohol Use History / Comment(s): Smoking since age 17, 1/2 ppd. Past Drug Use History: Marijuana Additional Drug Use History / Comment(s): medical use daily Additional History: She is since 2019, but is still with her ex- and they live together. She is disabled. - Past Family History Mother Family Medical History: Renal Disease Additional Family Medical History / Comment(s): Fibromyalgia. Father Family Medical History: Diabetes Mellitus Additional Family Medical History / Comment(s): Paternal grandmother had lung cancer. Medications and Allergies Home Medications Medication Instructions Recorded Confirmed Type Albuterol Sulfate [Ventolin HFA] 1 - 2 puff INHALATION Q6H PRN 08/02/19 12/23/20 History Atorvastatin [Lipitor] 40 mg PO HS 08/02/19 12/23/20 History DULoxetine HCL [Cymbalta] 60 mg PO BID 08/02/19 12/23/20 History HYDROcodone/APAP 5-325MG [[place] 1 tab PO Q12HR PRN 08/02/19 12/23/20 History 5-325] Omeprazole 20 mg PO DAILY 08/02/19 12/23/20 History Oxybutynin Chloride [Ditropan] 5 mg PO DAILY 08/02/19 12/23/20 History traZODone HCL [Desyrel] 100 mg PO HS 08/02/19 12/23/20 History Pregabalin [Lyrica] 200 mg PO BID 01/28/20 12/23/20 History Losartan [Cozaar] 50 mg PO DAILY 09/26/20 12/23/20 History Airpirazole 10 mg PO DAILY 12/23/20 12/23/20 History hydrOXYzine HCL 10 mg PO Q6HR PRN 12/23/20 12/23/20 History Allergies Allergy/AdvReac Type Severity Reaction Status Date / Time No Known Allergies Allergy Verified 09/26/20 12:54 Exam Vital Signs Temp Pulse Resp BP Pulse Ox 12/23/20 09:48 98.2 F 55 L 18 117/76 97 Intake and Output 12/22/20 12/23/20 12/23/20 22:59 06:59 14:59 Other: Weight 68.039 kg Height 5 feet 7-1/2 inches, weight 150 pounds, BMI 23.1. This is a well-developed well-nourished white female who is alert and oriented times 3 in no acute distress. HEENT: Within normal limits. NECK: Supple without mass or thyromegaly. CHEST AND LUNGS: Clear to auscultation. HEART: Regular rate and rhythm. BREASTS: Are without mass or discharge. AXILLARY EXAM: Negative for adenopathy. BACK: Negative for CVA tenderness. ABDOMEN: Soft, nontender, without palpable masses. PELVIC EXAM: Normal external genitalia with mild atrophy. Cervix and vagina appear normal with minimal atrophy. There is no unusual discharge. There is no evidence of prolapse. The uterus is midposition, nongravid size and nontender. There are no palpable adnexal masses or tenderness. RECTAL EXAM: Rectovaginal exam is negative for mass or tenderness and is negative for occult blood. EXTREMITIES: Nontender. IMPRESSION: 1. 55-year-old probable menopausal female who has been amenorrheic since her endometrial ablation many years ago. 2. Normal gynecologic exam. 3. History of right breast cancer with no evidence of recurrence on exam today. 4. Smoker. PLAN: 1. Pap smear cotest was performed. 2. Self breast awareness was discussed with the patient. 3. Diagnostic mammogram was done on 11/06/2020 and was benign. She will continue to see Dr. Terry Bailey regarding her breast cancer as directed. 4. Osteoporosis prevention was discussed. I have stressed the importance of adequate calcium, vitamin D and regular exercise. Recommended amounts of calcium and vitamin D were also discussed. 5. She has received her Covid vaccination. 6. She was advised to return in one year for her annual well woman exam.
== END ==
LOC: WWCWWP 09:41
PROVIDERS: ATTEND Obstetrics & Gynecology
DX: Z01.419 Encounter for gynecological examination (general) (routine) without abnormal findings (principal); F17.200 Nicotine dependence, unspecified, uncomplicated; F41.9 Anxiety disorder, unspecified; E78.5 Hyperlipidemia, unspecified; I10 Essential (primary) hypertension; F32.9 Major depressive disorder, single episode, unspecified; J44.9 Chronic obstructive pulmonary disease, unspecified; Z85.3 Personal history of malignant neoplasm of breast; Z79.899 Other long term (current) drug therapy; Z98.890 Other specified postprocedural states

== ENCOUNTER → 2021-12-02 | Outpatient (CLI) | payer OTHER ==
--- NOTE | 2021-12-02 14:19 | MM ---
Reason for exam: additional evaluation requested from prior study. Last mammogram was performed 1 year and 1 month ago. History: Patient has history of breast cancer at age 54 and has history of high-risk lesion on a previous biopsy at age 54. High risk MG pre op needle loc LT of the left breast, January 29, 2020. High risk MG pre op needle loc RT of the right breast, January 29, 2020. Malignant MG pre op needle loc RT of the right breast, October 02, 2019. Lumpectomy of the right breast. Taking antineoplastic for 2 years. Physical Findings: A clinical breast exam by your physician is recommended on an annual basis and results should be correlated with mammographic findings. MG 3D Diag Mammo W/Cad ROM Bilateral CC and MLO view(s) were taken. Prior study comparison: November 06, 2020, bilateral MG 3d diag mammo w/cad ROM. January 02, 2020, bilateral MG diagnostic mammo w CAD ROM. The breast tissue is heterogeneously dense. This may lower the sensitivity of mammography. Bilateral post surgical changes. No significant changes when compared with prior studies. ASSESSMENT: Benign, BI-RAD 2 RECOMMENDATION: Routine screening mammogram of both breasts in 1 year.
== END | disposition home or self-care (01) ==
LOC: RADMAMWWP 12:54
PROVIDERS: ATTEND Family Medicine
DX: R92.8 Other abnormal and inconclusive findings on diagnostic imaging of breast (principal); Z85.3 Personal history of malignant neoplasm of breast
CPT/HCPCS: 77066; G0279; 77062

== ENCOUNTER → 2022-12-15 | Outpatient (CLI) | payer OTHER ==
--- NOTE | 2022-12-16 08:48 | MM ---
Reason for Exam: Screening (asymptomatic). Last mammogram was performed 1 year(s) and 1 month(s) ago. Patient History: Menarche at age 11. First Full-Term at age 26. Postmenopausal. Breast cancer, right, age 54. Previous DCIS pathology result. Previous Atypical Lobular Hyperplasia at age 56. Lumpectomy on the Right side. 01/29/2020, High risk Core Biopsy on the left side. 01/29/2020, High risk Core Biopsy on the right side. 10/02/2019, Malignant Core Biopsy on the right side. Prior Study Comparison: 01/02/2020 Bilateral Diagnostic Mammogram, [facility]. 11/06/2020 Bilateral Diagnostic Mammogram, [facility]. 12/02/2021 Bilateral Diagnostic Mammogram, [facility]. Tissue Density: The breast tissue is heterogeneously dense. This may lower the sensitivity of mammography. Findings: Analyzed By CAD. There is no suspicious group of microcalcifications or new suspicious mass in either breast. Overall Assessment: Benign, BI-RAD 2 Management: Screening Mammogram of both breasts in 1 year. A clinical breast exam by your physician is recommended on an annual basis and results should be correlated with mammographic findings. Electronically signed and approved by: Kevin Causey M.D. Radiologis
== END | disposition home or self-care (01) ==
LOC: RADMAMWWP 14:34
PROVIDERS: ATTEND Family Medicine
DX: Z12.31 Encounter for screening mammogram for malignant neoplasm of breast (principal); Z78.0 Asymptomatic menopausal state
CPT/HCPCS: 77063; 77067

== ENCOUNTER → 2023-03-30 | Outpatient (CLI) | payer OTHER ==
[2023-03-30 08:16] VITALS: BP 127/84; PULSE 60; RESP 17; TEMP 98.4
--- NOTE | 2023-03-30 09:00 | P.HPOB ---
History of Present Illness H&P Date: 03/30/23 Chief Complaint: The patient is here for her routine gynecologic exam. This is a 57-year-old with an LMP of 2000. The patient does have occasional night sweats. She has noticed small painless lumps on the right vulvar region and this is been there for several years. She is otherwise without complaints and denies any postmenopausal bleeding. Review of Systems The patient has gained 12 pounds over the last 2 years. She denies respiratory, cardiac, or G.I. problems. Past Medical History Past Medical History: Asthma, Cancer, COPD, Fibromyalgia, Hyperlipidemia, Hypertension, Musculoskeletal Disorder Additional Past Medical History / Comment(s): Right breast cancer 2019 status post lumpectomy. Right renal cancer 2021. Peptic ulcer disease, [place] carpal tunnel, fibromyalgia inserts past, heart murmur, insomnia, varicose veins. 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 History of Any Multi-Drug Resistant Organisms: None Reported Past Surgical History: Breast Surgery, Tubal Ligation, Uterine Ablation Additional Past Surgical History / Comment(s): ovarian cyst drained. Novasure ablation 2000. Colonoscopy 2016(next after 10yr) Right breast lumpectomy 2019. Partial right nephrectomy 2021. Past Anesthesia/Blood Transfusion Reactions: No Reported Reaction, Family History of Problems w/ Anesthesia Additional Past Anesthesia/Blood Transfusion Reaction / Comment(s): mother had cardiac arrest & rash to sodium pentothol. Past Psychological History: Anxiety, Depression Smoking Status: Current every day smoker (1 pack per day) Past Alcohol Use History: None Reported, Occasional Additional Past Alcohol Use History / Comment(s): Smoking since age 17, 1/2 ppd. Quit drinking alcohol in 2020. Past Drug Use History: Marijuana (Daily use.) Additional Drug Use History / Comment(s): medical use daily Additional History: She is since 2019, but is still with her ex- . They are sexually active and live together. - Past Family History Mother Family Medical History: Renal Disease Additional Family Medical History / Comment(s): Fibromyalgia. Father Family Medical History: Diabetes Mellitus Additional Family Medical History / Comment(s): Paternal grandmother had lung cancer. Medications and Allergies Home Medications Medication Instructions Recorded Confirmed Type Albuterol Sulfate [Ventolin HFA] 1 - 2 puff INHALATION Q6H PRN 08/02/19 03/30/23 History Atorvastatin [Lipitor] 40 mg PO HS 08/02/19 03/30/23 History DULoxetine HCL [Cymbalta] 60 mg PO BID 08/02/19 03/30/23 History HYDROcodone/APAP 5-325MG [[place] 1 tab PO Q12HR PRN 08/02/19 03/30/23 History 5-325] traZODone HCL [Desyrel] 100 mg PO HS 08/02/19 03/30/23 History Pregabalin [Lyrica] 200 mg PO BID 01/28/20 03/30/23 History Losartan [Cozaar] 50 mg PO DAILY 09/26/20 03/30/23 History hydrOXYzine HCL 10 mg PO Q6HR PRN 12/23/20 03/30/23 History Baclofen [Lioresal] 20 mg PO DAILY 03/30/23 03/30/23 History Pantoprazole [Protonix] 40 mg PO DAILY 03/30/23 03/30/23 History Tamoxifen [Nolvadex] 20 mg PO DAILY 03/30/23 03/30/23 History lamoTRIgine [LaMICtal] 25 mg PO DAILY 03/30/23 03/30/23 History Allergies Allergy/AdvReac Type Severity Reaction Status Date / Time No Known Allergies Allergy Verified 09/26/20 12:54 Exam Vital Signs Temp Pulse Resp BP Pulse Ox 03/30/23 08:13 98.4 F 60 17 127/84 96 Intake and Output 03/29/23 03/30/23 03/30/23 22:59 06:59 14:59 Other: Weight 73.482 kg Height 5 feet 7 inches, weight 162 pounds, BMI 25.4. This is a well-developed well-nourished white female who is alert and oriented times 3 in no acute distress. HEENT: Within normal limits. NECK: Supple without mass or thyromegaly. CHEST AND LUNGS: Clear to auscultation. HEART: Regular rate and rhythm. BREASTS: Are without mass or discharge. AXILLARY EXAM: Negative for adenopathy. BACK: Negative for CVA tenderness. ABDOMEN: Soft, nontender, without palpable masses. PELVIC EXAM: External genitalia reveals 2 benign-appearing right vulvar inclusion cyst at the lateral aspect of the labia majora each measuring approximately 6 mm. The external genitalia also reveals mild atrophy. Cervix and vagina appear normal with mild atrophy. There is no unusual discharge. There is no evidence of prolapse. The uterus is midposition, nongravid size and nontender. There are no palpable adnexal masses or tenderness. RECTAL EXAM: Rectovaginal exam is negative for mass or tenderness and is negative for occult blood. EXTREMITIES: Nontender. IMPRESSION: 1. 57-year-old menopausal female with benign-appearing right vulvar inclusion cysts and otherwise unremarkable gynecologic exam. 2. History of right breast cancer status post lumpectomy with no evidence of recurrence on exam today. 3. Smoker PLAN: 1. Pap smear was deferred since she had a negative Pap smear cotest on 12/23/2020. 2. Self breast awareness was discussed with the patient. We have also discussed symptoms associated with inflammatory breast cancer. 3. Screening mammogram done on 12/15/2022 and was benign. She will repeat this after 1 year. 4. Osteoporosis prevention was discussed. I have stressed the importance of adequate calcium, vitamin D and regular exercise. Recommended amounts of calcium and vitamin D were also discussed. 5. I recommended that she quit smoking and we have discussed many reasons why this is important. 6. We have discussed the vulvar inclusion cysts and how treatment is not needed for this. She was instructed call if she is noticing significant changes or problems with this. 7. She was advised to return in one year for her annual well woman exam.
== END ==
LOC: WWCWWP 08:05
PROVIDERS: ATTEND Obstetrics & Gynecology
DX: Z01.419 Encounter for gynecological examination (general) (routine) without abnormal findings (principal); Z78.0 Asymptomatic menopausal state; E78.5 Hyperlipidemia, unspecified; F17.210 Nicotine dependence, cigarettes, uncomplicated; F32.A Depression, unspecified; F41.9 Anxiety disorder, unspecified; I10 Essential (primary) hypertension; J44.9 Chronic obstructive pulmonary disease, unspecified; M79.7 Fibromyalgia; Z85.3 Personal history of malignant neoplasm of breast; Z79.899 Other long term (current) drug therapy; Z85.528 Personal history of other malignant neoplasm of kidney; Z79.51 Long term (current) use of inhaled steroids

== ENCOUNTER → 2023-03-31 | Outpatient (CLI) | payer OTHER ==
--- NOTE | 2023-03-31 14:13 | P.SLEEP ---
History of Present Illness DATE: 03/31/2023 CONSULTATION/NEW PATIENT EVALUATION HISTORY OF PRESENT ILLNESS/SLEEP-WAKE EVALUATION: 57 year old lady had been evaluated in the sleep center for possible obstructive sleep apnea hypopnea syndrome. SLEEP SCHEDULE: Usually sleep schedule from 11 PM to 7 AM. FALLING ASLEEP: Is in no problems with falling asleep. DURING SLEEP: Patient has loud snoring, awakenings with dry mouth, restless legs, sweatings up to 3 times with 2 episodes of nocturia. No history of hypnogogical hallucinations, sleep paralysis, or cataplexy. DURING THE DAY/WAKE STATE: During the day patient feels significantly sleepy, falling asleep during the day. Jackson sleepiness scale is 8, always falling asleep while sitting and reading, or watching TV. She doesn't take scheduled naps. Patient drinks up to 3 coffee a day and up to 3 Pepsi a day. PAST MEDICAL HISTORY: Hypertension, fibromyalgia, hyperlipidemia, asthma, left breast cancer, right kidney cancer, bipolar disorder. PAST SURGICAL HISTORY: Surgical treatment of breast cancer and kidney cancer. MEDICATIONS: Tamoxifen 20 mg once a day, Lyrica 200 mg twice a day, [place] 3 times a day, Cymbalta 60 mg twice a day, pantoprazole 40 mg once a day, hydroxyzine 25 mg up to 4 times a day, losartan 50 mg once a day, trazodone 100 mg once a day at bed time, atorvastatin 40 mg once a day. SOCIAL HISTORY: Smoker for 40 pack years, continued to smoke, alcohol consumption none. FAMILY HISTORY: Hypertension, heart problems. REVIEW OF SYSTEMS: Snoring, multiple awakenings from sleep, sleepiness during the day. No fevers. No double vision. No recent chest pain. No shortness of breath. No abdominal pain. No bleeding episodes. No blood in urine. No seizure episodes. PHYSICAL EXAMINATION: GENERAL: A pleasant patient without any distress. VITAL SIGNS: BP 115/64 , HR 69 , RR 12 , weight 140.0 pounds, height 5 foot 7.5 inches, body mass index 24.6, temperature 98.0, oxygen saturation at room air 94% . HEENT: PERRLA, EOMI. Evaluation of oropharynx showed tongue protrudes midline, low position of soft palate Mallampati 4, retrognathia. NECK: Supple. No JVD. Thyroid is not palpable. 15 inches in circumference. LUNGS: Clear to percussion and to auscultation. Good air exchange. No wheezing or rhonchi. HEART: S1, S2 regular. No murmurs, gallops or rubs. ABDOMEN: Soft and nontender. Bowel sounds are present. No organomegaly appreciated. EXTREMITIES: No clubbing or cyanosis. STRATEGIC BUSINESS DEVELOPMENT: Awake, alert, and oriented x3. Cranial nerves 2 to 7 intact. There is no fasciculation or atrophy noted. No focal deficits observed. ASSESSMENT: 1. Snoring, multiple awakenings from sleep, low position of soft palate Mallampati 4, retrognathia, sleepiness. Obstructive sleep apnea hypopnea syndrome. 2. Significant excessive daytime sleepiness, which sometimes is difficult to control according to the patient. Differential diagnosis include hypersomnia. 3. Hypertension. 4. History of fibromyalgia. 5 history of asthma. 6 . Smoker for 40 pack years, continues to smoke. 7. History of left breast cancer, status post surgical treatment. 8. History of right kidney cancer status post surgical treatment. 9 . History of bipolar. 10. Hyperlipidemia. PLAN: 1. Polysomnography for evaluation of patient's breathing during sleep. Multiple sleep latency test if sleep study negative for obstructive sleep apnea hypopnea syndrome. 2. CPAP/BiPAP titration if sleep study confirms obstructive sleep apnea- hypopnea syndrome. 3. Preferable position during sleep on the side. 4. No driving if patient feels any sleepiness. Patient is aware of civil and criminal liability for unsafe driving. 5. Sleep hygiene with regular sleep time for at least 7.5-8 hours. 6. Smoking cessation program. Thank you very much for referring this patient for consultation. Sincerely, Gordon Marcano MD, PhD, FAASM. Diplomat of [employer] [employer], Sleep Medicine Board by [place] [employer] [employer] Grade [facility] Past Medical History Past Medical History: Asthma, Cancer, COPD, Fibromyalgia, Hyperlipidemia, Hypertension, Musculoskeletal Disorder Additional Past Medical History / Comment(s): Right breast cancer 2019 status post lumpectomy. Right renal cancer 2021. Peptic ulcer disease, [place] carpal tunnel, fibromyalgia inserts past, heart murmur, insomnia, varicose veins. 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 History of Any Multi-Drug Resistant Organisms: None Reported Past Surgical History: Breast Surgery, Tubal Ligation, Uterine Ablation Additional Past Surgical History / Comment(s): ovarian cyst drained. Novasure ablation 2000. Colonoscopy 2016(next after 10yr) Right breast lumpectomy 2019. Partial right nephrectomy 2021. Past Anesthesia/Blood Transfusion Reactions: No Reported Reaction, Family History of Problems w/ Anesthesia Additional Past Anesthesia/Blood Transfusion Reaction / Comment(s): mother had cardiac arrest & rash to sodium pentothol. Past Psychological History: Anxiety, Depression Smoking Status: Current every day smoker (1 pack per day) Past Alcohol Use History: None Reported, Occasional Additional Past Alcohol Use History / Comment(s): Smoking since age 17, 1/2 ppd. Quit drinking alcohol in 2020. Past Drug Use History: Marijuana (Daily use.) Additional Drug Use History / Comment(s): medical use daily - Past Family History Mother Family Medical History: Renal Disease Additional Family Medical History / Comment(s): Fibromyalgia. Father Family Medical History: Diabetes Mellitus Additional Family Medical History / Comment(s): Paternal grandmother had lung cancer. Medications and Allergies Home Medications Medication Instructions Recorded Confirmed Type Albuterol Sulfate [Ventolin HFA] 1 - 2 puff INHALATION Q6H PRN 08/02/19 03/30/23 History Atorvastatin [Lipitor] 40 mg PO HS 08/02/19 03/30/23 History DULoxetine HCL [Cymbalta] 60 mg PO BID 08/02/19 03/30/23 History HYDROcodone/APAP 5-325MG [[place] 1 tab PO Q12HR PRN 08/02/19 03/30/23 History 5-325] traZODone HCL [Desyrel] 100 mg PO HS 08/02/19 03/30/23 History Pregabalin [Lyrica] 200 mg PO BID 01/28/20 03/30/23 History Losartan [Cozaar] 50 mg PO DAILY 09/26/20 03/30/23 History hydrOXYzine HCL 10 mg PO Q6HR PRN 12/23/20 03/30/23 History Baclofen [Lioresal] 20 mg PO DAILY 03/30/23 03/30/23 History Pantoprazole [Protonix] 40 mg PO DAILY 03/30/23 03/30/23 History Tamoxifen [Nolvadex] 20 mg PO DAILY 03/30/23 03/30/23 History lamoTRIgine [LaMICtal] 25 mg PO DAILY 03/30/23 03/30/23 History Allergies Allergy/AdvReac Type Severity Reaction Status Date / Time No Known Allergies Allergy Verified 09/26/20 12:54 Sleep Note - Sleep Note Sleep Note: Temperature: Pulse Rate: Respiratory Rate: Blood Pressure: SpO2: Height: Weight: BMI: Neck Circumference:
== END ==
LOC: 3 N SLEEP 13:29
PROVIDERS: ATTEND Internal Medicine
DX: G47.30 Sleep apnea, unspecified (principal); G47.33 Obstructive sleep apnea (adult) (pediatric); I10 Essential (primary) hypertension; M79.7 Fibromyalgia; F31.9 Bipolar disorder, unspecified; E78.5 Hyperlipidemia, unspecified; J45.909 Unspecified asthma, uncomplicated; F17.210 Nicotine dependence, cigarettes, uncomplicated; Z85.3 Personal history of malignant neoplasm of breast; Z85.528 Personal history of other malignant neoplasm of kidney; Z99.89 Dependence on other enabling machines and devices; Z79.51 Long term (current) use of inhaled steroids
CPT/HCPCS: 99211

== ENCOUNTER 2023-05-29 19:54 | Outpatient (CLI) | payer OTHER | END 2023-05-30 06:00 | disposition home or self-care (01) | LOC: 3 N SLEEP 19:54 | PROVIDERS: ATTEND Internal Medicine | DX: G47.33 Obstructive sleep apnea (adult) (pediatric) (principal); F17.200 Nicotine dependence, unspecified, uncomplicated | CPT/HCPCS: 95810 ==

== ENCOUNTER → 2024-01-18 | Outpatient (CLI) | payer OTHER ==
--- NOTE | 2024-01-19 19:07 | MM ---
Reason for Exam: Hx of breast cancer, conservation therapy. Last mammogram was performed 1 year(s) and 1 month(s) ago. Patient History: Menarche at age 11. First Full-Term at age 26. Postmenopausal. Breast cancer, right, age 54. Previous DCIS pathology result. Previous Atypical Lobular Hyperplasia at age 56. Lumpectomy on the Right side. 01/29/2020, High risk Core Biopsy on the left side. 01/29/2020, High risk Core Biopsy on the right side. 10/02/2019, Malignant Core Biopsy on the right side. Prior Study Comparison: 11/06/2020 Bilateral Diagnostic Mammogram, [facility]. 12/02/2021 Bilateral Diagnostic Mammogram, [facility]. 12/15/2022 Bilateral MG 3D screening mammo w/cad, [facility]. Tissue Density: The breasts are heterogeneously dense, which may obscure small masses. Findings: Analyzed By CAD. Postsurgical change both breasts. There is no suspicious group of microcalcifications or new suspicious mass in either breast. Overall Assessment: Benign, BI-RAD 2 Management: Screening Mammogram of both breasts in 1 year. . Patient should continue monthly self-breast exams. A clinical breast exam by your physician is recommended on an annual basis. This exam should not preclude additional follow-up of suspicious palpable abnormalities. Electronically signed and approved by: Amrik Robles M.D. Radiologist
== END | disposition home or self-care (01) ==
LOC: RADMAMWWP 09:43
PROVIDERS: ATTEND Family Medicine
DX: Z12.31 Encounter for screening mammogram for malignant neoplasm of breast (principal); Z78.0 Asymptomatic menopausal state; Z85.3 Personal history of malignant neoplasm of breast
CPT/HCPCS: 77063; 77067

== ENCOUNTER → 2024-04-27 | Outpatient (CLI) | payer OTHER ==
--- NOTE | 2024-05-23 10:59 | CT ---
Patient: Nidia Chandler S Ordering Physician: Unknown, Unknown ID: [id number] Phone, Pager: Phone: N/A Pager: N/A : 1965 Age/Gender: 58Y, F Primary Location: N/A Procedure: CODE STROKE: CTA head neck Study Date: 04/27/2024 1:56:00 PM EXAMINATION TYPE: CT brain without contrast. CT angiogram head. CT angiogram neck. CT DLP: 1317 mGycm, Automated exposure control for dose reduction was used. DATE OF EXAM: 05/02/2024 9:59 AM COMPARISON: None. CLINICAL INDICATION: No prior MRI at [facility]. Isovue 370/65 ml. WAHL, prior abnormal MRI TECHNIQUE: Brain: Axial CT images of the brain were obtained with coronal and sagittal reformats created and rev iewed. Contrast used: None. Oral contrast used: None. Axially acquired helical CT angiogram of the head and neck was obtained with contrast. Axial images a re supplemented with 3D reconstructions and MIP images which were post-processed at an independent w [facility]. NASCET criteria used. Contrast used: 65 cc Isovue-370. Oral contrast used: None. FINDINGS: Brain: Extra-axial spaces: No abnormal extra-axial fluid collections. Ventricular system: Within normal limits Cerebral parenchyma: No acute intraparenchymal hemorrhage or mass effect. The walker-white junction is well differentiated. Cerebellum: Unremarkable. Mass effect: No evidence of midline shift. Intracranial vasculature: unremarkable Soft tissues: Normal. Calvarium/osseous structures: No depressed skull fracture. Paranasal sinuses and mastoid air cells: Mild scattered paranasal sinus disease. Visualized orbits: Orbital contents are intact. CTA HEAD: No evidence of acute intracranial hemorrhage, mass effect, or midline shift. The ventricles, sulci, a nd cisterns are unremarkable. The visualized portions of the internal carotid arteries, middle cerebral arteries, anterior cerebral arteries, and posterior cerebral arteries are patent. The basilar and vertebral arteries are patent. CTA NECK: Right Carotid System: The common carotid artery and external carotid artery are patent. The carotid bifurcation demonstrate s no evidence of hemodynamically significant stenosis. The remaining portions of the internal carotid artery demonstrate normal size without significant narrowing. Left Carotid System: The common carotid artery and external carotid artery are patent. The carotid bifurcation demonstrate s no evidence of hemodynamically significant stenosis. The remaining portions of the internal carotid artery demonstrate normal size without significant narrowing. Vertebral arteries are patent without evidence hemodynamically significant stenosis. There is a three-vessel aortic arch. The origins of the great vessels are patent. No evidence of hemo dynamically significant stenosis. Upper thorax: Mild paraseptal emphysema changes and centrilobular emphysema changes in the lung apice s. IMPRESSION: IMPRESSION: No priors are available for comparison. 1. No acute intracranial process. 2. No evidence of dissection of the cervical internal carotid arteries or vertebral arteries or any evidence of significant stenosis at the carotid bifurcations. 3. No evidence of intracranial high-grade stenosis or intracranial aneurysm.
== END | disposition home or self-care (01) ==
LOC: RADCTMAIN 13:45
PROVIDERS: ATTEND Psychiatry & Neurology Neurology
DX: R93.89 Abnormal findings on diagnostic imaging of other specified body structures (principal)
CPT/HCPCS: 70496; 70450; 70498; Q9967